=== PATIENT | female | born 2000 | race African-American/Black ===

== ENCOUNTER 2020-06-28 18:50 | Emergency (ER) | payer MEDICAID ==
[~2020-06-28] VITALS: Ht 180.3 cm; Wt 81.6 kg
--- NOTE | 2020-06-28 19:05 | NUR ---
CAme in for "Abdominal Pain x 4days getting worse every day. Went to see MD and was told ruptured cyst- NOT better", to ER bed 11, hooked to monitor, changed to hosp gown, warm blanket provided, patient aao x 4, NAD noted. awaiting MD schroeder
--- NOTE | 2020-06-28 19:18 | NUR ---
PT REASSESSED. PT COMPLAINED OF LOWER ABD D/T RUPTURED CYST. PT DENIES ANY NAUSEA AND VOMITING. VSS. WILL CONTINUE TO MONITOR
[2020-06-28] MEDS ORDERED: KETOROLAC TROMETHAMINE INJ 60 MG/2 ML VIAL IM ONE (19:30)
--- NOTE | 2020-06-28 19:32 | NUR ---
ULTRASOUND AT BEDSIDE
[2020-06-28] MEDS ORDERED: KETOROLAC TROMETHAMINE INJ 30 MG/ML VIAL ONE (19:33)
--- NOTE | 2020-06-28 19:37 | NUR ---
URINE COLLECTED AND SENT TO LAB
--- NOTE | 2020-06-28 19:44 | NUR ---
FOLLOWED UP W/ LAB REGARDING URINE TEST
[2020-06-28 19:49] LABS: APPEARANCE,URINE Slightly Cloudy (CLEAR); BILIRUBIN,URINE Negative (NEGATIVE); BLOOD, URINE Negative Ery/uL (NEGATIVE); COLOR,URINE Yellow (YELLOW); KETONES,URINE Negative (NEGATIVE); LEUKOCYTE ESTERASE ,URINE Negative (NEGATIVE); NITRITE, URINE Negative (NEGATIVE); PH,URINE 5.5 (5.0-8.0); PROTEIN,URINE Negative (NEGATIVE); UGLUCOSE Negative (NEGATIVE); UROBILINOGEN,URINE 0.2 EU/dL (0.2)
--- NOTE | 2020-06-28 19:50 | NUR ---
PT MEDICATED ORDERED
[2020-06-28] MEDS ORDERED: ONDANSETRON 4 MG TAB.RAPDIS ONE (20:25)
[2020-06-28] MEDS ORDERED: MORPHINE SULFATE INJ 2 MG/ML DISP.SYRIN ONE (20:25)
[2020-06-28] MEDS ORDERED: MORPHINE SULFATE INJ 2 MG/ML DISP.SYRIN IM ONE (20:30)
[2020-06-28] MEDS ORDERED: ONDANSETRON 4 MG TAB.RAPDIS SL ONE (20:30)
--- NOTE | 2020-06-28 20:59 | NUR ---
Patient discharged to home in stable condition. Written and verbal after care instructions given. Patient verbalizes understanding of instruction.pt. ambulatory with a steady gait
[2020-06-28 21:00] VITALS: BP 119/84
== END 2020-06-28 21:00 | disposition home or self-care (01) ==
LOC: ER 18:53
DX: R10.2 Pelvic and perineal pain (principal); R10.30 Lower abdominal pain, unspecified
CPT/HCPCS: 76856; 81001; 84703; 96372 ×2; 99284; J1885; J2270; Q0162; 81000-TC